=== PATIENT | female | born 1985 | race Caucasian/White ===

== ENCOUNTER 2018-02-26 23:59 | Emergency (ER) | payer OTHER ==
[2018-02-27] MEDS ORDERED: SODIUM CHLORIDE 0.9% 1,000 ML IV ONE ×2 (00:16→01:44)
[2018-02-27] MEDS ORDERED: LORazepam 2 MG/ML VIAL IVP STA (00:16)
--- NOTE | 2018-02-27 00:17 | ED Physician Documentation ---
History of Present Illness - Stated complaint Stated Complaint: DIZZY/LIGHTHEADED/FAST HEART RATE - Chief complaint Chief Complaint: Cardiac - History obtained from History obtained from: Patient, Family - History of Present Illness Timing: Today Pain level max: 0 Pain level now: 0 Improved by: lying down Worsened by: standing up - Additonal information Additional information: Patient is a 32-year-old female who presents to the emergency department after getting in the shower today and during the shower began to feel lightheaded and dizzy. Also felt like her heart was racing. Feels similar to her prior panic attacks. She is also been taking phentermine for weight loss and did not eat or drink very much today. 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 She states she currently feels very thirsty. Did drink a bottle of water before arrival today. Denies any chest pain. Denies any shortness of breath. Has never passed out before. Did not lose consciousness tonight. Denies any possibility of . LMP was last week Review of Systems Ten Systems: 10 systems reviewed and negative Constitutional: denies: Fever, Chills Ears: denies: Ear pain Nose: denies: Rhinorrhea / runny nose, Congestion Throat: denies: Sore throat Cardiac: reports: Palpitations. denies: Chest pain / pressure Respiratory: denies: Dyspnea, Cough, Hemoptysis, Wheezing GI: denies: Abdominal Pain, Nausea, Vomiting, Diarrhea : denies: Dysuria, Frequency, Hesitancy, Now EGA Skin: denies: Rash Musculoskeletal: denies: Neck pain, Back pain Neurologic: denies: Focal weakness, Numbness, Confused, Altered mental status, Headache PD PAST MEDICAL HISTORY - Past Medical History Past Medical History: Yes : Kidney stones Psych: Anxiety (states has been stressed lately. denies SI/HI. 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 - Present Medications Home Medications: Ambulatory Orders Medication Instructions Recorded Confirmed Phentermine HCl 1.5 cap PO DAILY 02/27/18 02/27/18 - Allergies Allergies/Adverse Reactions: Allergies Allergy/AdvReac Type Severity Reaction Status Date / Time No Known Drug Allergies Allergy Verified 01/07/16 01:55 - Social History Does the pt smoke?: No Smoking Status: Never smoker Does the pt drink ETOH?: No Does the pt have substance abuse?: No - Immunizations Immunizations are current?: Yes - POLST Patient has POLST: No PD ED PE NORMAL - Vitals Vital signs reviewed: Yes - General General: Alert and oriented X 3, No acute distress - HEENT HEENT: PERRL, Ears normal, Pharynx benign, Other (dry lips and tongue) - Neck Neck: Supple, no meningeal sign, No JVD, No bruit - Cardiac Cardiac: RRR, Strong equal pulses - Respiratory Respiratory: No respiratory distress, Clear bilaterally - Abdomen Abdomen: Soft, Non tender, Non distended - Back Back: No CVA TTP, No spinal TTP - Derm Derm: Warm and dry - Extremities Extremities: No edema - Neuro Neuro: Alert and oriented X 3, supervisory lifeguard 2-12 intact, No motor deficit, No sensory deficit, Normal speech - Psych Psych: Normal mood, Normal affect Results - Vitals Vitals: Vital Signs - 24 hr 02/27/18 02/27/18 02/27/18 00:06 00:07 00:58 Temperature 36.7 C Heart Rate 95 78 Respiratory 17 11 L Rate Blood Pressure 102/84 H 97/68 Blood Pressure 108/75 [Left] O2 Saturation 100 100 02/27/18 02/27/18 02/27/18 01:31 02:23 02:46 Temperature 36.5 C Heart Rate 81 74 64 Respiratory 17 20 16 Rate Blood Pressure 98/64 97/65 98/65 Blood Pressure [Left] O2 Saturation 100 100 100 Oxygen O2 Source Room air - EKG (time done) 0009 Rate: Rate (enter#) (88) Rhythm: NSR [place]: Normal Intervals: Normal MT QRS: Normal Ischemia: Normal ST segments - Labs Labs: Laboratory Tests 02/27/18 02/27/18 02/27/18 00:20 00:20 00:48 WBC 7.0 RBC 3.98 L Hgb 11.9 L Hct 34.8 L MCV 87.2 MCH 29.8 MCHC 34.2 RDW 12.9 Plt Count 244 MPV 8.1 Neut # (Auto) 4.5 Lymph # (Auto) 2.1 [place] # (Auto) 0.3 Eos # (Auto) 0.0 Baso # (Auto) 0.0 Absolute Nucleated RBC 0.00 Nucleated RBC % 0.0 Sodium 132 L Potassium 3.8 Chloride 99 L Carbon Dioxide 23 Anion Gap 10.0 BUN 20 Creatinine 1.0 Estimated GFR (MDRD) 64 L Glucose 146 H Calcium 9.4 Total Bilirubin 1.1 H AST 25 ALT 18 Alkaline Phosphatase 56 Total Protein 7.8 Albumin 4.5 Globulin 3.3 Albumin/Globulin Ratio 1.4 Lipase 25 Urine Color YELLOW Urine Clarity CLEAR Urine pH 7.0 Ur Specific [place] <=1.005 Urine Protein NEGATIVE Urine Glucose (UA) NEGATIVE Urine Ketones 15 H Urine Occult Blood NEGATIVE Urine Nitrite NEGATIVE Urine Bilirubin NEGATIVE Urine Urobilinogen 0.2 (NORMAL) Ur Leukocyte Esterase NEGATIVE Ur Microscopic Review NOT INDICATED Urine Culture Comments NOT INDICATED Urine HCG, Qual NEGATIVE PD MEDICAL DECISION MAKING - ED course Complexity details: reviewed results, re-evaluated patient, considered differential, d/w patient, d/w family ED course: Patient is a 32-year-old female who presents to the emergency department with what appears to be dehydration causing vasovagal near syncope while in a hot shower tonight. This appears to have triggered her anxiety as well. Symptoms resolved with Ativan and IV fluids. Tolerating p.o. without difficulty. No acute findings on EKG, telemetry or laboratory testing. No evidence of pulmonary embolism. We will have her follow-up with her doctor for further care. Encouraged her to increase her p.o. intake. Also discussed that phentermine may not be a good option for her given her history of anxiety. Patient counseled regarding signs and symptoms for which I believe and urgent re -evaluation would be necessary. Patient with good understanding of and agreement to plan and is comfortable going home at this time This document was made in part using voice recognition software. While efforts are made to proofread this document, sound alike and grammatical errors may occur. - Sepsis Event Vital Signs: Vital Signs - 24 hr 02/27/18 02/27/18 02/27/18 00:06 00:07 00:58 Temperature 36.7 C Heart Rate 95 78 Respiratory 17 11 L Rate Blood Pressure 102/84 H 97/68 Blood Pressure 108/75 [Left] O2 Saturation 100 100 02/27/18 02/27/18 02/27/18 01:31 02:23 02:46 Temperature 36.5 C Heart Rate 81 74 64 Respiratory 17 20 16 Rate Blood Pressure 98/64 97/65 98/65 Blood Pressure [Left] O2 Saturation 100 100 100 Oxygen O2 Source Room air Departure - Departure Disposition: 01 Home, Self Care Clinical Impression: Dehydration, Near syncope, Hyponatremia Condition: Good Instructions: ED Dehydration, ED Near Syncope Vasovagal Follow-Up: BHUMI GARCIA [Primary Care Provider] - Within 1 week Comments: Return if you worsen. Make sure to discuss your life stressors and anxiety with your doctor. You would likely benefit from a counselor/therapist as well. Discharge Date/Time: 02/27/18 02:53
[2018-02-27 00:48] LABS: BASOPHILS % (AUTO) 0.5 %; EOSINOPHILS % (AUTO) 0.1 %; HGB - HEMOGLOBIN 11.9 g/dL (12.0-16.0); LYMPHOCYTES # (AUTO) 2.1 10^3/uL (1.5-3.5); LYMPHOCYTES % (AUTO) 30.5 %; MEAN CORPUSCULAR HEMOGLOBIN 29.8 pg (27.0-31.0); MEAN CORPUSCULAR HGB CONC 34.2 g/dL (32.0-36.0); MEAN CORPUSCULAR VOLUME 87.2 fL (81.0-99.0); MEAN PLATELET VOLUME 8.1 fL (7.9-10.8); MONOCYTES # (AUTO) 0.3 10^3/uL (0.0-1.0); MONOCYTES % (AUTO) 4.7 %; NEUTROPHILS # (AUTO) 4.5 10^3/uL (1.5-6.6); NEUTROPHILS % (AUTO) 64.2 %; PLT - PLATELET COUNT 244 10^3/uL (130-450); RED BLOOD COUNT 3.98 10^6/uL (4.20-5.40); RED CELL DISTRIBUTION WIDTH 12.9 % (12.0-15.0)
[2018-02-27 00:53] LABS: BILIRUBIN,URINE NEGATIVE (NEGATIVE); GLUCOSE, URINE (UA) NEGATIVE (NEGATIVE); KETONES,URINE (UA) 15 mg/dL (NEGATIVE); LEUKOCYTE ESTERASE, URINE NEGATIVE (NEGATIVE); NITRITE,URINE NEGATIVE (NEGATIVE); OCCULT BLOOD,URINE NEGATIVE (NEGATIVE); PROTEIN,URINE NEGATIVE (NEGATIVE); UROBILINOGEN,URINE 0.2 (NORMAL) E.U./dL (NORMAL)
[2018-02-27 00:56] LABS: CLARITY,URINE CLEAR (CLEAR); HCG UR QUAL NEGATIVE
[2018-02-27 01:00] LABS: ALBUMIN 4.5 g/dL (3.2-5.5); ALBUMIN/GLOBULIN RATIO 1.4 (1.0-2.2); BILIRUBIN,TOTAL 1.1 mg/dL (0.2-1.0); CALCIUM 9.4 mg/dL (8.5-10.3); TOTAL PROTEIN 7.8 g/dL (6.7-8.2)
[2018-02-27 02:46] VITALS: BP 98/65
== END 2018-02-27 02:53 | disposition home or self-care (01) ==
LOC: ED 23:59
DX: R55 Syncope and collapse (principal); E87.1 Hypo-osmolality and hyponatremia; E86.0 Dehydration; F41.9 Anxiety disorder, unspecified
CPT/HCPCS: 36415; 80053; 81003; 81025; 83690; 85025; 93005; 96361; 96374; 99283; 99284; J2060; 81001; 87086

== ENCOUNTER 2018-03-24 08:29 | Emergency (ER) | payer OTHER ==
--- NOTE | 2018-03-24 08:39 | ED Physician Documentation ---
PD HPI FEMALE - Stated complaint Stated Complaint: PELVIC PX - History obtained from History obtained from: Patient - History of Present Illness Timing - onset: How many hours ago (2), Today Timing - duration: Hours (2) Timing - details: Abrupt onset, Still present Associated symptoms: Abdominal pain (right lower pelvic). No: Fever, Back pain , Vaginal bleeding, Vaginal discharge, Genital sore/lesion, Dysuria OB-GUARDIAN AD LITEM History: G (4), P (2), Miscarriage(s) (1 (tubal )), Prior vag delivery, Prior ectopic Similar symptoms before: Diagnosis (ruptured ectopic) Recently seen: Clinic (went to PCP last week after home test, for confirmation test. No other testing done.) Review of Systems Constitutional: denies: Fever Nose: denies: Rhinorrhea / runny nose, Congestion Throat: denies: Sore throat Respiratory: denies: Cough GI: reports: Abdominal Pain, Nausea. denies: Vomiting, Diarrhea : denies: Dysuria, Frequency Neurologic: denies: Generalized weakness, Near syncope PD PAST MEDICAL HISTORY - Past Medical History Cardiovascular: None Respiratory: None Neuro: None Endocrine/Autoimmune: None GUARDIAN AD LITEM: Ectopic : Kidney stones Psych: Anxiety (states has been stressed lately. denies SI/HI. 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 - Present Medications Home Medications: Ambulatory Orders Medication Instructions Recorded Confirmed Ibuprofen [Motrin] 600 mg PO TID #30 tab 03/24/18 Ondansetron Odt [Zofran] 4 mg TL Q6H PRN #15 tablet 03/24/18 - Allergies Allergies/Adverse Reactions: Allergies Allergy/AdvReac Type Severity Reaction Status Date / Time No Known Drug Allergies Allergy Verified 03/24/18 08:40 - Social History Does the pt smoke?: No Smoking Status: Never smoker Does the pt drink ETOH?: No Does the pt have substance abuse?: No - Immunizations Immunizations are current?: Yes - POLST Patient has POLST: No PD ED PE NORMAL - Vitals Vital signs reviewed: Yes - General General: Alert and oriented X 3, No acute distress, Well developed/nourished - Neck Neck: Supple, no meningeal sign, No adenopathy - Cardiac Cardiac: RRR, No murmur - Respiratory Respiratory: Clear bilaterally - Abdomen Abdomen: Normal bowel sounds, Soft, Non distended, No organomegaly, Other ( tender with guarding RLQ. ) - Female Female : Deferred - Rectal Rectal: Deferred - Back Back: No CVA TTP - Derm Derm: Normal color, Warm and dry, No rash - Extremities Extremities: Normal ROM s pain - Neuro Neuro: Alert and oriented X 3, No motor deficit, Normal speech Results - Vitals Vitals: Vital Signs - 24 hr 03/24/18 03/24/18 03/24/18 08:37 08:44 10:43 Temperature 36.7 C Heart Rate 92 67 71 Respiratory 18 16 15 Rate Blood Pressure 123/95 H 123/95 H 103/67 O2 Saturation 100 100 100 03/24/18 12:39 Temperature Heart Rate 58 L Respiratory Rate Blood Pressure 112/69 O2 Saturation 100 Oxygen O2 Source Room air - Labs Labs: Laboratory Tests 03/24/18 03/24/18 03/24/18 08:58 08:58 08:58 WBC 5.2 RBC 4.30 Hgb 12.8 Hct 37.7 MCV 87.8 MCH 29.8 MCHC 34.0 RDW 13.6 Plt Count 246 MPV 7.3 L Neut # (Auto) 2.8 Lymph # (Auto) 2.0 [place] # (Auto) 0.3 Eos # (Auto) 0.1 Baso # (Auto) 0.1 Absolute Nucleated RBC 0.00 Nucleated RBC % 0.0 Sodium 136 Potassium 4.3 Chloride 104 Carbon Dioxide 25 Anion Gap 7.0 BUN 11 Creatinine 0.7 Estimated GFR (MDRD) 96 Glucose 99 Calcium 9.2 HCG, Quant 919.93 Urine Color Urine Clarity Urine pH Ur Specific [place] Urine Protein Urine Glucose (UA) Urine Ketones Urine Occult Blood Urine Nitrite Urine Bilirubin Urine Urobilinogen Ur Leukocyte Esterase Ur Microscopic Review Urine Culture Comments Blood Type 03/24/18 03/24/18 10:30 10:46 WBC RBC Hgb Hct MCV MCH MCHC RDW Plt Count MPV Neut # (Auto) Lymph # (Auto) [place] # (Auto) Eos # (Auto) Baso # (Auto) Absolute Nucleated RBC Nucleated RBC % Sodium Potassium Chloride Carbon Dioxide Anion Gap BUN Creatinine Estimated GFR (MDRD) Glucose Calcium HCG, Quant Urine Color YELLOW Urine Clarity CLEAR Urine pH 7.0 Ur Specific [place] <=1.005 Urine Protein NEGATIVE Urine Glucose (UA) NEGATIVE Urine Ketones NEGATIVE Urine Occult Blood NEGATIVE Urine Nitrite NEGATIVE Urine Bilirubin NEGATIVE Urine Urobilinogen 0.2 (NORMAL) Ur Leukocyte Esterase NEGATIVE Ur Microscopic Review NOT INDICATED Urine Culture Comments NOT INDICATED Blood Type O POSITIVE - Rads (name of study) pelvic OB U/S Radiology: Prelim report reviewed (intrauterine sac c/w 5.6 weeks (early for dates) Normal ovaries. No free fluid. ) PD MEDICAL DECISION MAKING - ED course Complexity details: reviewed results, re-evaluated patient, considered differential (high concern for ectopic . Other possibilities would be ruptured cyst, kidney stone, appy, UTI, pelvic infection. ), d/w patient - Sepsis Event Vital Signs: Vital Signs - 24 hr 03/24/18 03/24/18 03/24/18 08:37 08:44 10:43 Temperature 36.7 C Heart Rate 92 67 71 Respiratory 18 16 15 Rate Blood Pressure 123/95 H 123/95 H 103/67 O2 Saturation 100 100 100 03/24/18 12:39 Temperature Heart Rate 58 L Respiratory Rate Blood Pressure 112/69 O2 Saturation 100 Oxygen O2 Source Room air Departure - Departure Disposition: 01 Home, Self Care Clinical Impression: Early stage of , Right lower quadrant abdominal pain Condition: Stable Record reviewed to determine appropriate education?: Yes Instructions: ED Abdominal Pain Unkn Cause Follow-Up: BHUMI GARCIA [Primary Care Provider] - Prescriptions: Ibuprofen [Motrin] 600 mg PO TID #30 tab Ondansetron Odt [Zofran] 4 mg TL Q6H PRN #15 tablet PRN Reason: Nausea / Vomiting Comments: Your ultrasound showed what appeared to be in early in the uterus at 5-6 weeks size. Your quantitative hCG is in the 900s. You will want to have your blood test rechecked in 2-3 days to see if it is going up appropriately. The ultrasound did not show an obvious cause for the pain you were having. Consider the possibility of a small kidney stone passing. The onset and character of the pain does not suggest appendicitis but watch to see how the pain does over the next day and return if worsening pain, repetitive vomiting, any fever, bloody stool or diarrhea or any other concerns. Discharge Date/Time: 03/24/18 12:44
[2018-03-24] MEDS ORDERED: SODIUM CHLORIDE 0.9% 1,000 ML IV ONE (08:52)
[2018-03-24] MEDS ORDERED: ONDANSETRON 4 MG/2 ML VIAL IVP STA (09:08)
[2018-03-24] MEDS ORDERED: MORPHINE 10 MG/ML VIAL IVP STA (09:08)
[2018-03-24 09:14] LABS: BASOPHILS # (AUTO) 0.1 10^3/uL (0.0-0.1); BASOPHILS % (AUTO) 1.1 %; EOSINOPHILS # (AUTO) 0.1 10^3/uL (0.0-0.7); EOSINOPHILS % (AUTO) 1.4 %; HGB - HEMOGLOBIN 12.8 g/dL (12.0-16.0); LYMPHOCYTES % (AUTO) 38.6 %; MEAN CORPUSCULAR HEMOGLOBIN 29.8 pg (27.0-31.0); MEAN CORPUSCULAR VOLUME 87.8 fL (81.0-99.0); MEAN PLATELET VOLUME 7.3 fL (7.9-10.8); MONOCYTES # (AUTO) 0.3 10^3/uL (0.0-1.0); MONOCYTES % (AUTO) 5.6 %; NEUTROPHILS # (AUTO) 2.8 10^3/uL (1.5-6.6); NEUTROPHILS % (AUTO) 53.3 %; PLT - PLATELET COUNT 246 10^3/uL (130-450); RED CELL DISTRIBUTION WIDTH 13.6 % (12.0-15.0); WHITE BLOOD COUNT 5.2 x10^3/uL (4.8-10.8)
[2018-03-24 09:23] LABS: CALCIUM 9.2 mg/dL (8.5-10.3); CREATININE 0.7 mg/dL (0.4-1.0)
[2018-03-24] MEDS ORDERED: KETOROLAC 60 MG/2 ML VIAL IVP STA (10:38)
--- NOTE | 2018-03-24 10:57 | Ultrasound Report ---
Procedure Date: 03/24/2018 Accession Number: [id number] / [id number] Procedure: US - OB First Trimester CPT Code: FULL RESULT: EXAM: FIRST TRIMESTER OBSTETRIC ULTRASOUND (Less than 11 weeks) EXAM DATE: 03/24/2018 10:30 AM. CLINICAL HISTORY: Early ; lower right abd pain. LMP: 01/18/2018. COMPARISONS: None. TECHNIQUE: Transabdominal and transvaginal ultrasound examination with static image documentation. CLINICAL DATES: EGA 9 weeks 2 days with MARCIANO 10/25/2018 based on LMP. ASSESSMENT: Gestational Sac: Intrauterine fluid collection, which could represent a gestational sac. Mean gestational sac diameter: 10.1 mm = 5 weeks 6 days. Embryo: Not visualized. Cardiac activity: Not visualized. Yolk sac: Not visualized. Amniotic fluid: Not accurately assessed at this gestational age. Early placenta: Not visible at this gestational age. Other: No perigestational fluid collection demonstrated. MATERNAL STRUCTURES: Uterus: Anteverted. Mildly heterogeneous without definite focal abnormality. Cervix: Closed. Right Ovary/Adnexa: Unremarkable. The ovary measures 4.1 x 2.0 x 2.7 cm, volume 11.5 cc. Left Ovary/Adnexa: Unremarkable. The ovary measures 2.3 x 1.4 x 1.9 cm, volume cc. Free Fluid: None. Other: None. IMPRESSION: Intrauterine fluid collection, which could represent a gestational sac. If this is a gestational sac, size would correspond to an estimated gestational age of 5 weeks and 6 days and MARCIANO 11/18/2017 which is discordant with the clinical EGA of 9 weeks 2 days and MARCIANO 10/25/2018. Nonvisualization of embryo and yolk sac. Absence of an embryo at or greater than 6 weeks after last menstrual period is suspicious for, but not diagnostic of, failure. The discordance with the clinical EGA is also concerning. Recommend close clinical follow-up and correlation with serial beta hCG and, if appropriate, follow-up ultrasound in 7-10 days. RENA The above findings and recommendation were discussed with Dyllan Mario by Dr. Silverio Tadoe at 10:54 hrs on 03/24/18.
[2018-03-24 10:58] LABS: BILIRUBIN,URINE NEGATIVE (NEGATIVE); GLUCOSE, URINE (UA) NEGATIVE (NEGATIVE); KETONES,URINE (UA) NEGATIVE (NEGATIVE); LEUKOCYTE ESTERASE, URINE NEGATIVE (NEGATIVE); NITRITE,URINE NEGATIVE (NEGATIVE); OCCULT BLOOD,URINE NEGATIVE (NEGATIVE); PROTEIN,URINE NEGATIVE (NEGATIVE); UROBILINOGEN,URINE 0.2 (NORMAL) E.U./dL (NORMAL)
[2018-03-24 11:01] LABS: CLARITY,URINE CLEAR (CLEAR)
[2018-03-24 12:40] VITALS: BP 112/69
== END 2018-03-24 12:44 | disposition home or self-care (01) ==
LOC: ED 08:29
DX: O99.89 Other specified diseases and conditions complicating pregnancy, childbirth and the puerperium (principal); R10.31 Right lower quadrant pain; Z87.59 Personal history of other complications of pregnancy, childbirth and the puerperium
CPT/HCPCS: 36415; 76801; 76817; 80048; 81001; 81003; 84702; 85025; 86900; 86901; 87086; 96361; 96374; 96375; 99283; 99284

== ENCOUNTER 2018-03-25 12:39 | Emergency (ER) | payer OTHER ==
[2018-03-25 13:57] LABS: EOSINOPHILS # (AUTO) 0.1 10^3/uL (0.0-0.7); EOSINOPHILS % (AUTO) 2.4 %; HGB - HEMOGLOBIN 11.7 g/dL (12.0-16.0); LYMPHOCYTES # (AUTO) 1.6 10^3/uL (1.5-3.5); LYMPHOCYTES % (AUTO) 32.7 %; MEAN CORPUSCULAR HEMOGLOBIN 30.2 pg (27.0-31.0); MEAN CORPUSCULAR HGB CONC 34.4 g/dL (32.0-36.0); MEAN CORPUSCULAR VOLUME 87.8 fL (81.0-99.0); MEAN PLATELET VOLUME 6.9 fL (7.9-10.8); MONOCYTES # (AUTO) 0.3 10^3/uL (0.0-1.0); MONOCYTES % (AUTO) 5.9 %; NEUTROPHILS # (AUTO) 2.8 10^3/uL (1.5-6.6); PLT - PLATELET COUNT 226 10^3/uL (130-450); RED BLOOD COUNT 3.87 10^6/uL (4.20-5.40); RED CELL DISTRIBUTION WIDTH 13.7 % (12.0-15.0); WHITE BLOOD COUNT 4.9 x10^3/uL (4.8-10.8)
[2018-03-25 14:09] LABS: ALBUMIN/GLOBULIN RATIO 1.3 (1.0-2.2); BILIRUBIN,TOTAL 0.7 mg/dL (0.2-1.0); CALCIUM 8.9 mg/dL (8.5-10.3); CREATININE 0.6 mg/dL (0.4-1.0); TOTAL PROTEIN 7.2 g/dL (6.7-8.2)
--- NOTE | 2018-03-25 15:47 | ED Physician Documentation ---
PD HPI FEMALE - Stated complaint Stated Complaint: FEMALE / BLEEDING/9 WEEK - Chief complaint Chief Complaint: Abd Pain - History obtained from History obtained from: Patient - History of Present Illness Timing - onset: Yesterday Timing - duration: Days (1) Timing - details: Abrupt onset Pain level max: 5 Pain level max: 4 Associated symptoms: Pelvic pain, Vaginal bleeding OB-OBSTETRICS GYN History: G (4), P (2), Prior ectopic (x1) Recently seen: Emergency Dept (yesterday for same.) Review of Systems Ten Systems: 10 systems reviewed and negative Constitutional: denies: Fever, Chills Nose: denies: Rhinorrhea / runny nose, Congestion Throat: denies: Sore throat Cardiac: denies: Chest pain / pressure GI: denies: Nausea, Vomiting, Diarrhea Skin: denies: Rash Musculoskeletal: denies: Neck pain, Back pain Neurologic: denies: Headache PD PAST MEDICAL HISTORY - Past Medical History Cardiovascular: None Respiratory: None Neuro: None Endocrine/Autoimmune: None OBSTETRICS GYN: Ectopic : Kidney stones Psych: Anxiety (states has been stressed lately. denies SI/HI. 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: section - Present Medications Home Medications: Ambulatory Orders Medication Instructions Recorded Confirmed Ibuprofen [Motrin] 600 mg PO TID #30 tab 03/24/18 03/25/18 Ondansetron Odt [Zofran] 4 mg TL Q6H PRN #15 tablet 03/24/18 03/25/18 - Allergies Allergies/Adverse Reactions: Allergies Allergy/AdvReac Type Severity Reaction Status Date / Time No Known Drug Allergies Allergy Verified 03/25/18 13:03 - Social History Does the pt smoke?: No Smoking Status: Never smoker Does the pt drink ETOH?: No Does the pt have substance abuse?: No - Immunizations Immunizations are current?: Yes - POLST Patient has POLST: No PD ED PE NORMAL - Vitals Vital signs reviewed: Yes - General General: Alert and oriented X 3, No acute distress - HEENT HEENT: Moist mucous membranes - Neck Neck: Supple, no meningeal sign - Cardiac Cardiac: RRR - Respiratory Respiratory: No respiratory distress, Clear bilaterally - Abdomen Abdomen: Soft, Non tender, Non distended - Female Female : Pt declined - Back Back: No CVA TTP - Derm Derm: Warm and dry - Neuro Neuro: Alert and oriented X 3 - Psych Psych: Normal mood, Normal affect Results - Vitals Vitals: Vital Signs - 24 hr 03/25/18 03/25/18 13:00 16:04 Temperature 37.1 C Heart Rate 78 69 Respiratory 18 16 Rate Blood Pressure 119/70 108/70 O2 Saturation 100 100 Oxygen O2 Source Room air - Labs Labs: Laboratory Tests 03/25/18 03/25/18 03/25/18 13:50 13:50 13:50 WBC 4.9 RBC 3.87 L Hgb 11.7 L Hct 34.0 L MCV 87.8 MCH 30.2 MCHC 34.4 RDW 13.7 Plt Count 226 MPV 6.9 L Neut # (Auto) 2.8 Lymph # (Auto) 1.6 [place] # (Auto) 0.3 Eos # (Auto) 0.1 Baso # (Auto) 0.0 Absolute Nucleated RBC 0.00 Nucleated RBC % 0.0 Sodium 136 Potassium 3.8 Chloride 105 Carbon Dioxide 25 Anion Gap 6.0 BUN 11 Creatinine 0.6 Estimated GFR (MDRD) 115 Glucose 69 L Calcium 8.9 Total Bilirubin 0.7 AST 22 ALT 18 Alkaline Phosphatase 55 Total Protein 7.2 Albumin 4.0 Globulin 3.2 Albumin/Globulin Ratio 1.3 Lipase 32 HCG, Quant 590.66 PD MEDICAL DECISION MAKING - ED course Complexity details: reviewed old records, reviewed results, considered differential, d/w patient ED course: Patient is a 32-year-old female who appears to be miscarrying today. Her hCG is decreased from 900 yesterday to 500 today. Has vaginal bleeding similar to her normal menses. Hemoglobin is stable. Vital signs are stable. Had an ultrasound yesterday that showed a possible gestational sac but states discordant with her LMP. Patient informed that she is miscarrying and will follow up with her doctor. Patient counseled regarding signs and symptoms for which I believe and urgent re-evaluation would be necessary. Patient with good understanding of and agreement to plan and is comfortable going home at this time This document was made in part using voice recognition software. While efforts are made to proofread this document, sound alike and grammatical errors may occur. - Sepsis Event Vital Signs: Vital Signs - 24 hr 03/25/18 03/25/18 13:00 16:04 Temperature 37.1 C Heart Rate 78 69 Respiratory 18 16 Rate Blood Pressure 119/70 108/70 O2 Saturation 100 100 Oxygen O2 Source Room air Departure - Departure Disposition: 01 Home, Self Care Clinical Impression: Miscarriage Condition: Good Instructions: ED Miscarriage Completed Follow-Up: BHUMI GARCIA [Primary Care Provider] - As Needed Comments: It appears that you are having a miscarriage. Your hormone levels have decreased significantly since yesterday. Return for heavy bleeding, such as soaking a pad an hour, feeling lightheaded or dizzy or any other worsening symptoms. Return if you worsen Discharge Date/Time: 03/25/18 16:04
[2018-03-25 16:06] VITALS: BP 108/70
== END 2018-03-25 16:04 | disposition home or self-care (01) ==
LOC: ED 12:39
DX: O03.9 Complete or unspecified spontaneous abortion without complication (principal); Z87.59 Personal history of other complications of pregnancy, childbirth and the puerperium
CPT/HCPCS: 36415; 80053; 83690; 84702; 85025; 99283

== ENCOUNTER 2019-09-27 13:42 | Emergency (ER) | payer OTHER ==
[2019-09-27] MEDS ORDERED: SODIUM CHLORIDE 0.9% 1,000 ML IV ONE ×2 (14:04→15:07)
[2019-09-27 14:11] LABS: BASOPHILS # (AUTO) 0.1 10^3/uL (0.0-0.1); BASOPHILS % (AUTO) 0.8 %; EOSINOPHILS # (AUTO) 0.1 10^3/uL (0.0-0.7); EOSINOPHILS % (AUTO) 1.1 %; HGB - HEMOGLOBIN 12.7 g/dL (12.0-16.0); LYMPHOCYTES # (AUTO) 2.4 10^3/uL (1.5-3.5); LYMPHOCYTES % (AUTO) 34.4 %; MEAN CORPUSCULAR HEMOGLOBIN 28.7 pg (27.0-31.0); MEAN CORPUSCULAR HGB CONC 33.3 g/dL (32.0-36.0); MEAN CORPUSCULAR VOLUME 86.2 fL (81.0-99.0); MEAN PLATELET VOLUME 9.3 fL (7.9-10.8); MONOCYTES # (AUTO) 0.5 10^3/uL (0.0-1.0); MONOCYTES % (AUTO) 6.9 %; NEUTROPHILS % (AUTO) 56.4 %; PLT - PLATELET COUNT 273 10^3/uL (130-450); RED BLOOD COUNT 4.42 10^6/uL (4.20-5.40); RED CELL DISTRIBUTION WIDTH 12.6 % (12.0-15.0); WHITE BLOOD COUNT 7.1 x10^3/uL (4.8-10.8)
[2019-09-27 14:26] LABS: ALBUMIN 4.4 g/dL (3.2-5.5); ALBUMIN/GLOBULIN RATIO 1.2 (1.0-2.2); BILIRUBIN,TOTAL 0.7 mg/dL (0.2-1.0); CALCIUM 9.4 mg/dL (8.5-10.3); CREATININE 0.5 mg/dL (0.4-1.0); TOTAL PROTEIN 8.2 g/dL (6.7-8.2)
--- NOTE | 2019-09-27 14:53 | ED Physician Documentation ---
PD HPI FEMALE - Stated complaint Stated Complaint: FEMALE - Chief complaint Chief Complaint: Abd Pain - History obtained from History obtained from: Patient - History of Present Illness Timing - onset: How many days ago (3) Timing - duration: Days (3) Timing - details: Gradual onset, Still present (worse significantly today), Waxing and waning Associated symptoms: Abdominal pain, Back pain (left flank and even some to left shoulder). No: Fever, Vaginal bleeding, Vaginal discharge, Dysuria Contributing factors: (recent Dx with estimated 6 wks EGA). 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 It feels like ectopic and internal bleeding she had had in the past.) Similar symptoms before: Diagnosis (ectopic ) Recently seen: Not recently seen Review of Systems Constitutional: denies: Fever, Chills Nose: denies: Rhinorrhea / runny nose, Congestion Throat: denies: Sore throat Respiratory: denies: Cough GI: reports: Abdominal Pain, Nausea. denies: Vomiting, Constipation, Diarrhea : reports: Missed period, Now EGA (6). 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 Psych: Anxiety Musculoskeletal: None Derm: None - Past Surgical History Past Surgical History: Yes /TRACK REPAIR WORKER: section - Present Medications Home Medications: Ambulatory Orders Medication Instructions Recorded Confirmed Naproxen 375 mg PO BID #15 tablet 09/27/19 Ondansetron Odt [Zofran] 4 mg TL Q6H PRN #10 tablet 09/27/19 Pnv No.95/Ferrous Fum/Folic AC 1 each PO DAILY #30 tablet 09/27/19 [ Vitamin Tablet] Pyridoxine HCl (Vitamin B6) 25 mg PO BID #60 tablet 09/27/19 [Vitamin B-6] - Allergies Allergies/Adverse Reactions: Allergies Allergy/AdvReac Type Severity Reaction Status Date / Time No Known Drug Allergies Allergy Verified 09/27/19 13:52 - Social History Does the pt smoke?: No Smoking Status: Never smoker Does the pt drink ETOH?: No Does the pt have substance abuse?: No - Immunizations Immunizations are current?: Yes - POLST Patient has POLST: No PD ED PE NORMAL - Vitals Vital signs reviewed: Yes - General General: Alert and oriented X 3, Well developed/nourished, Other (appears in pain) - HEENT HEENT: Pharynx benign - Neck Neck: Supple, no meningeal sign, No adenopathy - Cardiac Cardiac: RRR, No murmur - Respiratory Respiratory: Clear bilaterally - Abdomen Abdomen: Normal bowel sounds, Soft, Non distended, No organomegaly, Other (tender left lower to mid abdomen without percussion nor rebound. No guarding. Some CVA tender left. Right side not tender. ) Results - Vitals Vitals: Vital Signs - 24 hr 09/27/19 09/27/19 09/27/19 13:50 13:52 14:22 Temperature 36.8 C 36.8 C Heart Rate 82 82 70 Respiratory 18 18 14 Rate Blood Pressure 129/92 H 129/92 H 121/84 H O2 Saturation 100 100 100 09/27/19 09/27/19 09/27/19 14:30 14:46 15:00 Temperature Heart Rate 60 60 57 L Respiratory 16 11 L 16 Rate Blood Pressure 137/73 H 137/68 H 123/68 O2 Saturation 98 93 100 09/27/19 09/27/19 09/27/19 15:30 17:00 17:30 Temperature Heart Rate 54 L 60 58 L Respiratory 14 14 14 Rate Blood Pressure 95/53 L 110/62 106/66 O2 Saturation 100 100 100 09/27/19 09/27/19 18:00 19:35 Temperature Heart Rate 60 57 L Respiratory 14 18 Rate Blood Pressure 108/65 115/72 O2 Saturation 100 99 Oxygen O2 Source Room air - Labs Labs: Laboratory Tests 09/27/19 09/27/19 09/27/19 14:05 14:05 14:05 WBC 7.1 RBC 4.42 Hgb 12.7 Hct 38.1 MCV 86.2 MCH 28.7 MCHC 33.3 RDW 12.6 Plt Count 273 MPV 9.3 Neut # (Auto) 4.0 Lymph # (Auto) 2.4 Coffee # (Auto) 0.5 Eos # (Auto) 0.1 Baso # (Auto) 0.1 Absolute Nucleated RBC 0.00 Nucleated RBC % 0.0 Sodium 136 Potassium 3.4 L Chloride 102 Carbon Dioxide 24 Anion Gap 10.0 BUN 11 Creatinine 0.5 Estimated GFR (MDRD) 140 Glucose 84 Calcium 9.4 Total Bilirubin 0.7 AST 19 ALT 14 Alkaline Phosphatase 45 Total Protein 8.2 Albumin 4.4 Globulin 3.8 Albumin/Globulin Ratio 1.2 Lipase 32 HCG, Quant Urine Color Urine Clarity Urine pH Ur Specific [place] Urine Protein Urine Glucose (UA) Urine Ketones Urine Occult Blood Urine Nitrite Urine Bilirubin Urine Urobilinogen Ur Leukocyte Esterase Ur Microscopic Review Urine Culture Comments Blood Type O POSITIVE Antibody Screen NEGATIVE 09/27/19 09/27/19 14:05 18:22 WBC RBC Hgb Hct MCV MCH MCHC RDW Plt Count MPV Neut # (Auto) Lymph # (Auto) Coffee # (Auto) Eos # (Auto) Baso # (Auto) Absolute Nucleated RBC Nucleated RBC % Sodium Potassium Chloride Carbon Dioxide Anion Gap BUN Creatinine Estimated GFR (MDRD) Glucose Calcium Total Bilirubin AST ALT Alkaline Phosphatase Total Protein Albumin Globulin Albumin/Globulin Ratio Lipase HCG, Quant 31174.00 Urine Color LT. YELLOW Urine Clarity CLEAR Urine pH 6.5 Ur Specific [place] 1.010 Urine Protein NEGATIVE Urine Glucose (UA) NEGATIVE Urine Ketones NEGATIVE Urine Occult Blood NEGATIVE Urine Nitrite NEGATIVE Urine Bilirubin NEGATIVE Urine Urobilinogen 0.2 (NORMAL) Ur Leukocyte Esterase NEGATIVE Ur Microscopic Review NOT INDICATED Urine Culture Comments NOT INDICATED Blood Type Antibody Screen - Rads (name of study) OB U/S Radiology: Prelim report reviewed (IUP 6w5d with FHR 102. Small perigestational hemorrhage. right corpus luteum cyst. No free fluid. ), See rad report PD MEDICAL DECISION MAKING - ED course Complexity details: reviewed results, re-evaluated patient (pain improved with meds. U/S showing IUP and no free fluid. UA is normal. No explanation for pain for certain. Consider ureterolithiasis. Would not want to get CT due to regnancy. Can manage pain with NSAIDs in case. ), considered differential (concern for ectopic , ruptured cyst, pyelo, kidney stone, colonic process. ), d/w patient Departure - Departure Disposition: 01 Home, Self Care Clinical Impression: Abdominal pain Qualifiers: Abdominal location: lower abdomen, unspecified Qualified Code(s): R10.30 - Lower abdominal pain, unspecified Qualifiers: Weeks of gestation: less than 8 weeks Qualified Code(s): Z3A.01 - Less than 8 weeks gestation of Condition: Stable Record reviewed to determine appropriate education?: Yes Instructions: ED Abdominal Pain Unkn Cause Follow-Up: BHUMI GARCIA [Primary Care Provider] - Prescriptions: Naproxen 375 mg PO BID #15 tablet Ondansetron Odt [Zofran] 4 mg TL Q6H PRN #10 tablet PRN Reason: Nausea / Vomiting Pnv No.95/Ferrous Fum/Folic AC [ Vitamin Tablet] 1 each PO DAILY #30 tablet Pyridoxine HCl (Vitamin B6) [Vitamin B-6] 25 mg PO BID #60 tablet Comments: Your ultrasound shows a normal intrauterine. No free fluid. There is a small corpus luteum cyst on the right. Urine appears normal without any signs of infection or blood. At this point am not sure the cause of your stomach pain. Is not apparently related to the but no other identified cause at this time. Stay well-hydrated. You can use some Tylenol every 4-6 hours if needed. Consider naproxen anti-inflammatory twice daily for several days to week. Ondansetron if needed for nausea. You could start a vitamin daily pending follow-up appointment with TEST ENGINE EVALUATOR. You could use vitamin B6 twice daily as well to help reduce nausea in . Regular activity is okay except for high impact activities. Recheck if worsening symptoms or significant bleeding fever or other concerns. Discharge Date/Time: 09/27/19 19:20
[2019-09-27] MEDS ORDERED: KETOROLAC 30 MG/ML VIAL IVP STA (15:06)
[2019-09-27] MEDS ORDERED: ONDANSETRON 4 MG/2 ML VIAL IVP STA (15:06)
[2019-09-27] MEDS ORDERED: ACETAMINOPHEN 1,000 MG/100 ML 100 ML IV STA (15:06)
--- NOTE | 2019-09-27 17:48 | Ultrasound Report ---
Reason: left lower abd pain; 6 wks EGA Procedure Date: 09/27/2019 Accession Number: [id number] / [id number] Procedure: US - OB First Trimester CPT Code: Final Report FULL RESULT: EXAM: FIRST TRIMESTER OBSTETRIC ULTRASOUND (Less than 11 weeks) EXAM DATE: 09/27/2019 04:36 PM. CLINICAL HISTORY: Left lower abdomen pain; 6 wks EGA. Bilateral pelvic pain for 3 days, worsening today. LMP: 08/15/2019, EGA 6 weeks 1 day, MARCIANO 05/21/2020. COMPARISONS: OB FIRST TRIMESTER 03/24/2018 9:27 AM. TECHNIQUE: Transabdominal and transvaginal ultrasound examination with static image documentation. ASSESSMENT: Gestational Sac: Single intrauterine. Mean gestational sac diameter: 17.7 mm = 6 weeks 5 days, MARCIANO 05/17/2020. Embryo: CRL (crown-rump length) 5.4 mm = 6 weeks 2 days, MARCIANO 05/20/2020. Cardiac activity: 102 beats per minute. Yolk sac: 3.3 mm. Amniotic fluid: Not accurately assessed at this gestational age. Early placenta: Not visible at this gestational age. Other: Left posterior small perigestational bleed measuring 20 x 8 x 6 mm.. MATERNAL STRUCTURES: Uterus: Anteverted. Unremarkable. Cervix: Closed. Right Ovary/Adnexa: The ovary measures 5.4 x 2.4 x 3.2 cm, volume 22.6 cc. Unremarkable. Corpus luteum seen in the right ovary. Left Ovary/Adnexa: The ovary measures 2.6 x 1.5 x 2 cm, volume 4 cc. Unremarkable. Free Fluid: None. IMPRESSION: 1. Single living intrauterine measuring 6 weeks 2 days based on the embryo crown-rump length, MARCIANO 05/20/2020. This is concordant with dates. 2. Left posterior small perigestational bleed measuring 20 x 8 x 6 mm. RADIA
[2019-09-27 18:26] LABS: BILIRUBIN,URINE NEGATIVE (NEGATIVE); GLUCOSE, URINE (UA) NEGATIVE (NEGATIVE); KETONES,URINE (UA) NEGATIVE (NEGATIVE); LEUKOCYTE ESTERASE, URINE NEGATIVE (NEGATIVE); NITRITE,URINE NEGATIVE (NEGATIVE); OCCULT BLOOD,URINE NEGATIVE (NEGATIVE); PH,URINE 6.5 PH (5.0-7.5); PROTEIN,URINE NEGATIVE (NEGATIVE); UROBILINOGEN,URINE 0.2 (NORMAL) E.U./dL (NORMAL)
[2019-09-27 18:30] LABS: CLARITY,URINE CLEAR (CLEAR)
[2019-09-27] MEDS ORDERED: ACETAMINOPHEN 325 MG TABLET PO STA (18:45)
[2019-09-27 19:35] VITALS: BP 115/72
== END 2019-09-27 19:20 | disposition home or self-care (01) ==
LOC: ED 13:42
DX: O99.89 Other specified diseases and conditions complicating pregnancy, childbirth and the puerperium (principal); R10.30 Lower abdominal pain, unspecified; N83.11 Corpus luteum cyst of right ovary; Z3A.01 Less than 8 weeks gestation of pregnancy
CPT/HCPCS: 36415; 76801; 76817; 80053; 81003; 83690; 84702; 85025; 86850; 86900; 86901; 96361; 96365; 96375; 99284; A9270; J0131; 81001; 87086

== ENCOUNTER 2020-04-27 07:00 | Outpatient (CLI) | payer OTHER | END 2020-04-27 23:59 | disposition home or self-care (01) | LOC: LAB.R 07:00 | PROVIDERS: ATTEND Nurse Practitioner Obstetrics & Gynecology | DX: Z36.85 Encounter for antenatal screening for Streptococcus B (principal) | CPT/HCPCS: 87797 ==

== ENCOUNTER 2020-05-03 09:54 | Outpatient (CLI) | payer OTHER ==
[2020-05-03 10:15] LABS: HGB - HEMOGLOBIN 10.5 g/dL (12.0-16.0); MEAN CORPUSCULAR HEMOGLOBIN 29.5 pg (27.0-31.0); MEAN CORPUSCULAR HGB CONC 31.5 g/dL (32.0-36.0); MEAN CORPUSCULAR VOLUME 93.5 fL (81.0-99.0); MEAN PLATELET VOLUME 9.6 fL (7.9-10.8); RED BLOOD COUNT 3.56 10^6/uL (4.20-5.40); RED CELL DISTRIBUTION WIDTH 13.8 % (12.0-15.0); WHITE BLOOD COUNT 5.9 x10^3/uL (4.8-10.8)
== END 2020-05-03 09:55 | disposition home or self-care (01) ==
LOC: LAB 09:54
PROVIDERS: ATTEND Obstetrics & Gynecology
DX: D64.9 Anemia, unspecified (principal)
CPT/HCPCS: 36415; 85027

== ENCOUNTER 2020-05-11 11:07 | Outpatient (CLI) | payer OTHER ==
[2020-05-11 11:37] LABS: BASOPHILS % (AUTO) 0.4 %; EOSINOPHILS # (AUTO) 0.2 10^3/uL (0.0-0.7); HGB - HEMOGLOBIN 11.3 g/dL (12.0-16.0); LYMPHOCYTES # (AUTO) 1.5 10^3/uL (1.5-3.5); LYMPHOCYTES % (AUTO) 19.3 %; MEAN CORPUSCULAR HEMOGLOBIN 30.7 pg (27.0-31.0); MEAN CORPUSCULAR HGB CONC 33.3 g/dL (32.0-36.0); MEAN CORPUSCULAR VOLUME 92.1 fL (81.0-99.0); MEAN PLATELET VOLUME 9.5 fL (7.9-10.8); MONOCYTES # (AUTO) 0.6 10^3/uL (0.0-1.0); MONOCYTES % (AUTO) 7.5 %; NEUTROPHILS # (AUTO) 5.3 10^3/uL (1.5-6.6); NEUTROPHILS % (AUTO) 70.1 %; PLT - PLATELET COUNT 306 10^3/uL (130-450); RED BLOOD COUNT 3.68 10^6/uL (4.20-5.40); RED CELL DISTRIBUTION WIDTH 13.7 % (12.0-15.0); WHITE BLOOD COUNT 7.6 x10^3/uL (4.8-10.8)
== END 2020-05-11 11:08 | disposition home or self-care (01) ==
LOC: LAB 11:07
PROVIDERS: ATTEND Obstetrics & Gynecology
DX: Z01.812 Encounter for preprocedural laboratory examination (principal); Z20.828 Contact with and (suspected) exposure to other viral communicable diseases; O34.211 Maternal care for low transverse scar from previous cesarean delivery
CPT/HCPCS: 36415; 85025; 86850; 86900; 86901

== ENCOUNTER 2020-05-14 11:54 | Outpatient (CLI) | payer OTHER | END 2020-05-14 11:55 | disposition home or self-care (01) | LOC: LAB 11:54 | PROVIDERS: ATTEND Obstetrics & Gynecology | DX: Z01.818 Encounter for other preprocedural examination (principal); O34.211 Maternal care for low transverse scar from previous cesarean delivery; Z3A.00 Weeks of gestation of pregnancy not specified | CPT/HCPCS: 36415; 85025; 86850; 86900; 86901; 86920 ==

== ENCOUNTER 2020-05-16 05:36 | Inpatient (IN) | payer OTHER ==
[2020-05-16] MEDS ORDERED: LACTATED RINGERS 1,000 ML IV ONE ×2 (05:57→12:39)
[2020-05-16] MEDS ORDERED: OXYTOCIN/SODIUM CHLORIDE 500 ML IV ONE (07:31)
[2020-05-16] MEDS ORDERED: SODIUM CHLORIDE 0.9% MINIBAG 100 ML IV ONE (07:31)
[2020-05-16] MEDS ORDERED: ceFAZolin 1 GM VIAL ONE (07:31)
[2020-05-16] MEDS ORDERED: LIDOCAINE 1%-EPI 1:100000 20 ML MDV ONE (07:38)
--- NOTE | 2020-05-16 07:49 | ANESTHESIA ---
Pre-Anesthesia VS, & Labs - Diagnosis Previous C/S - Procedure Repeat c/s Height: 5 ft 5 in - NPO >8 hours - Is Patient ?: Yes Home Medications and Allergies PNV Allergies/Adverse Reactions: Allergies Allergy/AdvReac Type Severity Reaction Status Date / Time No Known Drug Allergies Allergy Verified 09/27/19 13:52 Anes History & Medical History - Anesthetic History Anesthesia Complications: reports: No previous complications - Medical History Cardiovascular: reports: None Pulmonary: reports: None Gastrointestinal: reports: GERD (during ) Urinary: reports: Kidney stones Neuro: reports: None Musculoskeletal: reports: None Endocrine/Autoimmune: reports: None Blood Disorders: reports: None Skin: reports: None Smoking Status: Never smoker Psychosocial: reports: Depression, Anxiety History of Cancer?: No - Surgical History Gynecologic: section, Other (Breast Augmentation, Ectopic ) Other Past Surgical History: Abdominoplasty - Obstetrical History : 4 Parity: 2 Events: positive: None Complications: positive: None Exam General: Alert, Oriented x3, Cooperative, No acute distress Dental: WNL Mouth Openin Fingerbreadth Neck Mobility: Normal Mallampati classification: II Thyromental Distance: 4-6 cm Plan Anesthesia Type: Spinal Consent for Procedure(s) Verified and Reviewed: Yes Code Status: Attempt Resuscitation ASA classification: 2-Mild systemic disease Is this case an emergency?: No
[2020-05-16] MEDS ORDERED: ACETAMINOPHEN 1,000 MG/100 ML 100 ML IV ONE (07:59)
[2020-05-16] MEDS ORDERED: KETOROLAC 30 MG/ML VIAL IVP ONE (07:59)
[2020-05-16] MEDS ORDERED: PHENYLEPHRINE 10 MG/ML VIAL IV ONE (07:59)
[2020-05-16] MEDS ORDERED: CARBOPROST TROMETHAMINE 250 MCG/ML AMP IM ONE (08:36)
[2020-05-16] MEDS ORDERED: miSOPROStoL 200 MCG TABLET ONE (08:36)
[2020-05-16] MEDS ORDERED: METHYLERGONOVINE 0.2 MG/ML VIAL ONE (08:36)
[2020-05-16] MEDS ORDERED: LIDOCAINE 1%-EPI 1:100000 30 ML MDV SUBQ ONE ×2 (08:37→10:00)
[2020-05-16] MEDS ORDERED: METHYLENE BLUE 0.5% 50 MG/10 ML AMPULE ONE (09:07)
[2020-05-16] MEDS ORDERED: fentaNYL 100 MCG/2 ML VIAL IVP PRN (09:23)
[2020-05-16] MEDS ORDERED: ATROPINE ABBOJECT 1 MG/10 ML SYRINGE IVP PRN (09:23)
[2020-05-16] MEDS ORDERED: NALOXONE 0.4 MG/ML VIAL IVP PRN (09:23)
[2020-05-16] MEDS ORDERED: MORPHINE 2 MG/ML CARPUJECT IVP PRN (09:23)
[2020-05-16] MEDS ORDERED: LACTATED RINGERS 1,000 ML IV SCH (10:00)
[2020-05-16] MEDS ORDERED: oxyCODONE 5 MG TABLET PO PRN (10:31)
[2020-05-16] MEDS ORDERED: OXYTOCIN/SODIUM CHLORIDE 500 ML IV PRN (10:31)
--- NOTE | 2020-05-16 10:35 | OPERATIVE REPORT ---
Operative Report - General Admit Date: 05/16/20 Procedure Date: 05/16/20 Planned Procedure: Repeat low transverse Pre-Op Diagnosis: IUP at 39 ga; hx of prior x2; hx of wound complication Procedure Performed: Repeat low transverse with wound revision Post Op Diagnosis: Same and deliveryof term gestation - Procedure Note Primary Surgeon: Maxi Spencer MD Secondary Surgeon: Shelly Ferguson CNM Anesthesia Provider: Nida Garcia CRNA Anesthesia Technique: Combo spinal/epidural, Spinal Pathology: Placenta for routine discard IV Fluids (mL): 1,300 Estimated Blood Loss (mL): 1,000 Urine Output (mL): 100 Indications: Patient is a 34 yo here for repeat . Endorses FM and contractions. No LOF or VB. Declines sterilization. Findings: Extensive scar tissue. Normal appearing right tube and ovary. Left tube surgically absent. Viable female delivered from vertex position with Apgars of 9/9. Weight pending. For future surgeries: the bladder is adherent to the underlying rectus fascia about 1/3 the length of the distance between the pubic symphysis and the umbilicus. The midline of the rectus could not be divided through the pyramidalis without compromising integrity of the bladder. Complications: None. - Other Other Information/Narrative: Risks benefits and alternatives of the procedure were discussed. Written informed consent was obtained. Patient was taken to the operating room where spinal anesthesia was placed and found to be adequate. She was prepped and draped in the usual sterile fashion in the dorsal supine position with a leftward tilt. Haines catheter was in place. SCDs were in place and activated. Cefazolin 2 g IV was given as a preoperative antibiotic. Preoperative timeout was performed. . An oval incision was made above and below the prior Pfannenstiel incision was made in the skin with a scalpel. The prior incison was grasped and elevated with Allis clamps and the underlying subcutaneous tissue was dissected off the over lying skin/incision tissue with Bovie cautery. The prior scar tissue w as removed from the field. The incision was then carried through the underlying layer of fascia in a combination of sharp and blunt dissection. There was significant scar tissue requiring careful dissection. The fascia was incised in the midline, and the incision was extended laterally with the Muller scissors. The fascial layer was thickly adherent over the rectus muscles and the fascial edge had to be carefully dissected off the underlying tissue with a scalpel. Once an edge of the fascia was surgically liberated, the superior aspect of the fascial incision was grasped with the Gianfranco clamps, elevated, and the underlying rectus muscles were dissected off sharply with the scalpel, controlling incidental bleeding with cautery. Attention was then turned to the inferior aspect of the incision which in a similar fashion was grasped, tented up with Gianfranco clamps, and the underlying rectus muscles dissected off sharply with scalpel with incidental bleeding con trolled with cautery. Again, there was thickened, adherent scar tissue obscuring the surgical planes that required careful dissection. The midline was was gently incised with a scalpel and hemostats were used to further develop the midline space. Once the midline was clearly identifiable and accessible, the rectus muscles were then in the midline. The peritoneum was identified, tented up, and entered bluntly. The peritoneal incision was extended superiorly and inferiorly with good visualization of the bladder. The bladder that blade was then inserted. A bladder flap was not created. The lower uterine segment of the uterus was identified, and incised in a transverse fashion with a scalpel. The uterus was entered bluntly. The uterine incision was extended in a craniocaudal fashion by manual stretch. The bladder blade was removed. The infant was floating and was difficult to deliver through thickened scar tissue. A Kiwi rigid cup vacuum was applied ot the head and the head was brought to the incision. Scar tissue was too thick for easy delivery. Bandage hannah were used to the the rectus muscles in a transverse fashion. Infant was delivered at 2 pop-offs with the vaccuum from a vertex position. Baby was wrapped in a warm sterile towel. Delayed cord clamping of about 20 seconds was performed. The cord was clamped x2 and cut. The infant was handed off to the waiting pediatricians. Uterine incision was noted to be 8:49 and delivery of the infant was at 8:54. The placenta was removed with manual expression. The uterus was NOT exteriorized. Ring forceps were applied to the upper and lower aspects of the incision and Allis clampes were applied to the corners. Ther uterus was cleared of all clots clots and debris via manual swipe using Ray-Ana Rosa x2. The uterine incision was then repaired in a running locked fashion using 0 Vicryl suture. The edge of the bladder was dissected away form the incision between the two suture closures to ensure that bladder adhesions were not included in the incision. The incision was reinforced with a running imbricating layer again using 0-Vicryl suture. Excellent hemostasis was obtained. The gutters were cleared of all clots and debris. The pelvis was irrigated with warm normal saline. The uterine defect was well visualized in normal anatomic position it was noted again to be hemostatic. The bladder was then backfilled with approximately 300 cc of NS with methylene blue. No spillage was noted in the pelvis and the bladder integrity was confirmed. Bladder was then drained. The peritoneum was then reapproximated with 2-0 Vicryl in a running fashion. The transverse incision acrs the left aspect of the rectus was re-approximated with mattress sutures using 2-0 Chromic. The rectus muscles were then reapproximated using interrupted [id number] sutures using 2-0 Chromic. Good hemostasis was noted. The fascia was then closed using 0 Vicryl in a running fashion starting from the left lateral edge to the midline. A second suture was used to close the fascia in a running fashion starting from the right lateral edge and meeting in the midline, again using 0-Vicryl. The subcutaneous tissue was then irrigated and closed using 2-0 chromic in a running subcutaneous suture in 2 layers. Skin was closed in a running subcuticular suture using 4-0 Monocryl. A total 10 cc of 1% lidocaine with epinephrine was injected into the incision line. Steri- Strips were applied to reinforce the incision and Prevena wound vac was applied. Procedure was well-tolerated and without complication. Sponge lap and needle counts were correct x2. Patient was taken to recovery room in stable condition. HOOD Ferguson assisted with retraction, suturing, delivery of the infant. 22 MODIFIER: This procedure was more difficult than the average given the immense amount of scar tissue and adhesions due to two prior c-sections, prior ectopic , and abdominoplasty and required more operative time for safe completion.
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
--- NOTE | 2020-05-16 12:38 | ANESTHESIA POST OP EVALUATION ---
Anesthesia Post Eval - Post Anesthesia Eval CV Function Including HR & BP: positive: Stable Pain Control: positive: Satisfactory Nausea & Vomiting: positive: Negative Mental Status: positive: Baseline Respiratory Status: Airway Patent Hydration Status: Satisfactory (Awake, alert, bonding with . Moving lower extremities. Taking PO ice chips) Anesthesia Complications: positive: None
[2020-05-16] MEDS: ACETAMINOPHEN 500 MG TABLET PO SCH ×2 (13:19→17:42)
[2020-05-16] MEDS: LACTATED RINGERS 1,000 ML IV SCH ×2 (13:19→20:32)
[2020-05-16] MEDS: KETOROLAC 30 MG/ML VIAL IVP SCH ×3 (13:19→22:04)
[2020-05-16] MEDS: ONDANSETRON 4 MG/2 ML VIAL IVP PRN ×2 (13:45→22:45)
[2020-05-16] MEDS ORDERED: ONDANSETRON 4 MG/2 ML VIAL ONE (13:52)
[2020-05-16] MEDS: SIMETHICONE CHEW 80 MG TABLET PO SCH (15:49)
[2020-05-16] MEDS: SODIUM CHLORIDE FLUSH 0.9% 10 ML SYRINGE IVP SCH ×2 (16:04→22:05)
[2020-05-16] MEDS ORDERED: KETOROLAC 30 MG/ML VIAL ONE (16:07)
[2020-05-16 19:36] LABS: BASOPHILS % (AUTO) 0.4 %; EOSINOPHILS # (AUTO) 0.1 10^3/uL (0.0-0.7); EOSINOPHILS % (AUTO) 1.5 %; HGB - HEMOGLOBIN 11.9 g/dL (12.0-16.0); LYMPHOCYTES % (AUTO) 21.5 %; MEAN CORPUSCULAR HEMOGLOBIN 30.8 pg (27.0-31.0); MEAN CORPUSCULAR HGB CONC 33.7 g/dL (32.0-36.0); MEAN CORPUSCULAR VOLUME 91.5 fL (81.0-99.0); MEAN PLATELET VOLUME 9.9 fL (7.9-10.8); MONOCYTES # (AUTO) 0.6 10^3/uL (0.0-1.0); MONOCYTES % (AUTO) 6.8 %; NEUTROPHILS # (AUTO) 6.3 10^3/uL (1.5-6.6); NEUTROPHILS % (AUTO) 68.8 %; PLT - PLATELET COUNT 287 10^3/uL (130-450); RED BLOOD COUNT 3.86 10^6/uL (4.20-5.40); RED CELL DISTRIBUTION WIDTH 13.7 % (12.0-15.0); WHITE BLOOD COUNT 9.2 x10^3/uL (4.8-10.8)
[2020-05-16 21:03] LABS: ALBUMIN 2.5 g/dL (3.2-5.5); ALBUMIN/GLOBULIN RATIO 0.7 (1.0-2.2); BILIRUBIN,TOTAL 0.5 mg/dL (0.2-1.0); CALCIUM 8.6 mg/dL (8.5-10.3); CREATININE 0.6 mg/dL (0.4-1.0); TOTAL PROTEIN 5.9 g/dL (6.7-8.2)
[2020-05-16] MEDS: SODIUM CHLORIDE FLUSH 0.9% 10 ML SYRINGE IVP PRN (22:13)
[2020-05-16] MEDS: HYDROmorphone 0.5 MG/0.5 ML SYRINGE IVP PRN (23:04)
[2020-05-17] MEDS: ACETAMINOPHEN 500 MG TABLET PO SCH ×3 (01:44→19:56)
[2020-05-17] MEDS: ONDANSETRON 4 MG/2 ML VIAL IVP PRN ×4 (03:50→21:12)
[2020-05-17] MEDS: SODIUM CHLORIDE FLUSH 0.9% 10 ML SYRINGE IVP SCH (03:50)
[2020-05-17] MEDS: HYDROmorphone 0.5 MG/0.5 ML SYRINGE IVP PRN (04:08)
[2020-05-17] MEDS: KETOROLAC 30 MG/ML VIAL IVP SCH (04:40)
[2020-05-17] MEDS: SODIUM CHLORIDE FLUSH 0.9% 10 ML SYRINGE IVP PRN (04:40)
[2020-05-17 05:39] LABS: BASOPHILS % (AUTO) 0.4 %; EOSINOPHILS # (AUTO) 0.1 10^3/uL (0.0-0.7); EOSINOPHILS % (AUTO) 0.6 %; HGB - HEMOGLOBIN 9.4 g/dL (12.0-16.0); LYMPHOCYTES # (AUTO) 1.2 10^3/uL (1.5-3.5); LYMPHOCYTES % (AUTO) 12.8 %; MEAN CORPUSCULAR HEMOGLOBIN 29.7 pg (27.0-31.0); MEAN PLATELET VOLUME 9.4 fL (7.9-10.8); MONOCYTES # (AUTO) 0.7 10^3/uL (0.0-1.0); MONOCYTES % (AUTO) 7.2 %; NEUTROPHILS # (AUTO) 7.6 10^3/uL (1.5-6.6); NEUTROPHILS % (AUTO) 78.5 %; PLT - PLATELET COUNT 233 10^3/uL (130-450); RED BLOOD COUNT 3.16 10^6/uL (4.20-5.40); RED CELL DISTRIBUTION WIDTH 13.5 % (12.0-15.0); WHITE BLOOD COUNT 9.6 x10^3/uL (4.8-10.8)
[2020-05-17] MEDS: SIMETHICONE CHEW 80 MG TABLET PO SCH (08:16)
[2020-05-17] MEDS: HYDROmorphone 2 MG TABLET PO PRN ×2 (09:54→14:54)
[2020-05-17] MEDS: IBUPROFEN 600 MG TABLET PO SCH ×2 (10:55→16:39)
--- NOTE | 2020-05-17 13:09 | PROVIDER PROGRESS NOTE ---
Subjective - Prog Note Date Prog Note Date: 05/17/20 Prog Note Time: 13:07 - Subjective Subjective: Patient is up and ambulating, tolerating po, and voiding. Pain is well managed with pain medications. Pain poorly managed on oxycodone, better on dilaudid. BF going well. Minimal lochia. Voiding. Objective - Vital Signs/Intake & Output Reviewed Vital Signs: Yes Vital Signs: Vital Signs x48h Temp Pulse Resp BP Pulse Ox 05/17/20 12:18 99.0 F 78 16 109/63 97 05/17/20 08:33 97.7 F 79 18 103/54 L 99 Intake & Output: Intake & Output 05/14/20 05/15/20 05/16/20 05/17/20 23:59 23:59 23:59 23:59 Intake Total 1200 900 Output Total 950 1220 Balance 250 -320 - Objective General Appearance: positive: No acute distress Respiratory: positive: Chest non-tender, No respiratory distress, Breath sounds nml Cardiovascular: positive: Regular rate & rhythm Abdomen: positive: Other (appropriately tender. FF below umbi. Prevena in place) Skin: positive: Color nml Extremities: positive: Non-tender, No pedal edema Neurologic/Psychiatric: positive: Oriented x3 - Lab Results Fish Bones: 05/17/20 05:30 05/16/20 20:38 Other Labs: Lab Results x24hrs 05/17/20 05/16/20 05/16/20 Range/Units 05:30 20:38 06:05 WBC 9.6 9.2 (4.8-10.8) x10^3/uL RBC 3.16 L 3.86 L (4.20-5.40) 10^6/uL Hgb 9.4 L 11.9 L (12.0-16.0) g/dL Hct 29.4 L 35.3 L (37.0-47.0) % MCV 93.0 91.5 (81.0-99.0) fL MCH 29.7 30.8 (27.0-31.0) pg MCHC 32.0 33.7 (32.0-36.0) g/dL RDW 13.5 13.7 (12.0-15.0) % Plt Count 233 287 (130-450) 10^3/uL MPV 9.4 9.9 (7.9-10.8) fL Neut # (Auto) 7.6 H 6.3 (1.5-6.6) 10^3/uL Lymph # (Auto) 1.2 L 2.0 (1.5-3.5) 10^3/uL [place] # (Auto) 0.7 0.6 (0.0-1.0) 10^3/uL Eos # (Auto) 0.1 0.1 (0.0-0.7) 10^3/uL Baso # (Auto) 0.0 0.0 (0.0-0.1) 10^3/uL Absolute Nucleated RBC 0.00 0.00 x10^3/uL Nucleated RBC % 0.0 0.0 /100WBC Sodium 135 (135-145) mmol/L Potassium 3.6 (3.5-5.0) mmol/L Chloride 102 (101-111) mmol/L Carbon Dioxide 23 (21-32) mmol/L Anion Gap 10.0 (6-13) BUN 14 (6-20) mg/dL Creatinine 0.6 (0.4-1.0) mg/dL Estimated GFR (MDRD) 114 (>89) Glucose 124 H (70-100) mg/dL Calcium 8.6 (8.5-10.3) mg/dL Total Bilirubin 0.5 (0.2-1.0) mg/dL AST 22 (10-42) IU/L ALT 12 (10-60) IU/L Alkaline Phosphatase 104 (42-121) IU/L Total Protein 5.9 L (6.7-8.2) g/dL Albumin 2.5 L (3.2-5.5) g/dL Globulin 3.4 (2.1-4.2) g/dL Albumin/Globulin Ratio 0.7 L (1.0-2.2) Assessment/Plan - Problem List (1) delivery delivered Impression: POD#1 s/p rLTCS -Routine post care -Working on optimization of pain mgt -Overall, doing well Anticiapte DC home in am.
[2020-05-17] MEDS ORDERED: HYDROmorphone 0.5 MG/0.5 ML SYRINGE IVP PRN (16:58)
[2020-05-17] MEDS: HYDROmorphone 1 MG/ML CARPUJECT IVP PRN ×2 (17:35→21:34)
[2020-05-18] MEDS: IBUPROFEN 600 MG TABLET PO SCH ×3 (00:55→12:59)
[2020-05-18] MEDS: HYDROmorphone 2 MG TABLET PO PRN ×4 (00:56→12:59)
[2020-05-18] MEDS: ACETAMINOPHEN 500 MG TABLET PO SCH ×2 (04:43→12:59)
[2020-05-18] MEDS: SIMETHICONE CHEW 80 MG TABLET PO SCH (07:27)
[2020-05-18 07:38] VITALS: BP 96/54
--- NOTE | 2020-05-18 11:33 | Discharge Plan ---
Discharge Plan Problem Reviewed?: Yes Disposition: Home, Self Care Condition: Good Prescriptions: HYDROmorphone [Dilaudid] 2 mg PO Q4H PRN #24 tablet PRN Reason: Severe Pain Docusate Sodium 100 - 200 mg PO BID PRN #60 capsule PRN Reason: Constipation Ibuprofen [Motrin] 600 mg PO Q6H PRN #90 tab PRN Reason: Pain Acetaminophen [Tylenol Extra Strength] 500 - 1,000 mg PO Q8H PRN #90 tablet PRN Reason: Pain Diet: Regular Activity Restrictions: Additional Comments (Nothing in the vagina for 6 weeks: No intercourse, tampons, douching Call for: -Fever greater than 100.5 - Pain that does not improve with pain medication -Heavy bleeding in which you are soaking a pad an hour for 2 hours in a row) Shower Restrictions: Yes (OK to shower. No baths of hot tubs) Driving Restrictions: Yes (No driving on narcotics) Additional Instructions or Follow Up instructions: When showering, let water run over the incision. Pat dry with a clean towel or use a watch hairspring assembler. Surgical tape will start to fall off after 1 week. If it starts to fall off it is okay to remove it. Otherwise, provider will remove at 1 week visit. If wound VAC becomes too uncomfortable to tolerate, it is okay to remove it. Otherwise will remove in clinic at 1 week . Please call if your wound becomes hot, hard, red, opens up, or starts to drain foul-smelling discharge. No lifting more than 10 pounds for 4 weeks. OK to lift the baby in that timeframe, but no older children, laundry baskets, baby carriers, grocery bags, etc. No Smoking: If you smoke, Please STOP! Call for help. Follow-up with: Lesly Spencer MD [Provider Admit Priv/Credential] -
--- NOTE | 2020-05-18 11:34 | DISCHARGE SUMMARY ---
"Discharge Summary Admit Date: 03/16/20 Discharge Date: 05/18/20 Discharging Provider: Tj Condition at Discharge: Good Discharge Facility Name: [facility] - DIAGNOSES Admission Diagnoses: IUP at 39+0 wga Hx of two prior c-sections Hx of ruptured ectopic Hx of abdominoplasty History of wound complication Discharge Diagnoses with Status of Each Condition: Same and delivery of term gestation - HPI History of Present Illness: Patient is a 34 yo at 39+0 wga here for scheduled repeat Hx of prior , scheduled for repeat. Second complicated by wound seroma requiring daily packing for 8 weeks. Also has hx of rupture ecoptic with salpingectomy and blood transfusion as well as abdominoplasty.. - CONSULTS | PROCEDURES Procedures: Repeat low transverse - HOSPITAL COURSE Hospital Course: Patient is a 34-year-old at 39+0 WGA admitted for scheduled repeat low transverse . Her past medical history is complicated by 2 prior C- sections, history of ruptured ectopic requiring blood transfusion, wound complication, and abdominoplasty. She was admitted on May 16, 2020 for scheduled procedure. The procedure itself was more challenging than average given the extensive amount of scar tissue but overall was well-tolerated and without complication. Prevena superficial wound vac was placed for wound management. Of note, the bladder was adherent to the posterior rectus sheath and was adherent to about 1/3 of the distance form the pubis to the umbilicus and care should be taken in future surgical intervention given the higher risk of bladder injury. Her postoperative course was uncomplicated. By POD#2, she was meeting goals for discharge and was discharged to home. O positive. Rubella immune Wound vac in place over closed incision. - ALLERGIES Allergies/Adverse Reactions: Allergies Allergy/AdvReac Type Severity Reaction Status Date / Time No Known Drug Allergies Allergy Verified 09/27/19 13:52 - MEDICATIONS Home Medications: Ambulatory Orders Medication Instructions Recorded Confirmed Naproxen 375 mg PO BID #15 tablet 09/27/19 Ondansetron Odt [Zofran] 4 mg TL Q6H PRN #10 tablet 09/27/19 Pnv No.95/Ferrous Fum/Folic AC 1 each PO DAILY #30 tablet 09/27/19 [ Vitamin Tablet] Pyridoxine HCl (Vitamin B6) 25 mg PO BID #60 tablet 09/27/19 [Vitamin B-6] Acetaminophen [Tylenol Extra 500 - 1,000 mg PO Q8H PRN #90 05/18/20 Strength] tablet Docusate Sodium 100 - 200 mg PO BID PRN #60 capsule 05/18/20 HYDROmorphone [Dilaudid] 2 mg PO Q4H PRN #24 tablet 05/18/20 Ibuprofen [Motrin] 600 mg PO Q6H PRN #90 tab 05/18/20 - PHYSICAL EXAM AT DISCHARGE General Appearance: positive: No acute distress Respiratory: positive: No respiratory distress, Breath sounds nml Cardiovascular: positive: Regular rate & rhythm Abdomen: positive: Other (appropriately tender. Wounnd vac in place. Edges of teguderm causing pressure related irritation and edges were released in upper extremities) Skin: positive: Color nml, Other (Irritation around end of teguderm on top of lower extremities. No erythema under adhesive. ) Extremities: positive: Non-tender, Other (mild BLE) Neurologic/Psychiatric: positive: Oriented x3 - LABS Result Diagrams: 05/17/20 05:30 05/16/20 20:38 - FOLLOW UP Follow Up: [address] Spencer - TIME SPENT Time Spent in Discharge (Minutes): 30"
== END 2020-05-18 13:00 | disposition home or self-care (01) | DRG 788 ==
LOC: FBP 05:36
PROVIDERS: ADMIT Obstetrics & Gynecology; ATTEND Obstetrics & Gynecology
PROC: 10D00Z1 Extraction of Products of Conception, Low, Open Approach (ICD-10-PCS; principal; 2020-05-16 07:30)
DX: O34.211 Maternal care for low transverse scar from previous cesarean delivery (principal); N85.8 Other specified noninflammatory disorders of uterus; Z3A.39 39 weeks gestation of pregnancy; Z37.0 Single live birth
CPT/HCPCS: 36415; 80053; 85025; A9270; J0131; J1170; J7120; 83880; 86850; 86900; 86901; 86920

== ENCOUNTER 2020-06-01 18:15 | Emergency (ER) | payer OTHER ==
--- NOTE | 2020-06-01 19:01 | ED Physician Documentation ---
PD HPI WOUND RECHECK - Stated complaint Stated Complaint: POST OP COMPLICATIONS - Chief complaint Chief Complaint: Abd Pain - Histroy obtained from History obtained from: Patient - History of Present Illness Location: Abdomen (lower abd c-sec wound line with some drainage the past couple of days. No redness. No fever.) Timing - onset: How many days ago (1-2) Associated symptoms: Drainage. No: Fever, Redness Similar symptoms before: Has not had sx before Recently seen: Clinic (had 05/16 and had good post op visit last week. 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 Psych: Anxiety Musculoskeletal: None Derm: None - Past Surgical History Past Surgical History: Yes /CORDUROY CUTTER OPERATOR: section, Other (Breast Augmentation, Ectopic ) - Present Medications Home Medications: Ambulatory Orders Medication Instructions Recorded Confirmed Naproxen 375 mg PO BID #15 tablet 09/27/19 Ondansetron Odt [Zofran] 4 mg TL Q6H PRN #10 tablet 09/27/19 Pnv No.95/Ferrous Fum/Folic AC 1 each PO DAILY #30 tablet 09/27/19 [ Vitamin Tablet] Pyridoxine HCl (Vitamin B6) 25 mg PO BID #60 tablet 09/27/19 [Vitamin B-6] Acetaminophen [Tylenol Extra 500 - 1,000 mg PO Q8H PRN #90 05/18/20 Strength] tablet Docusate Sodium 100 - 200 mg PO BID PRN #60 capsule 05/18/20 HYDROmorphone [Dilaudid] 2 mg PO Q4H PRN #24 tablet 05/18/20 Ibuprofen [Motrin] 600 mg PO Q6H PRN #90 tab 05/18/20 HYDROmorphone [Dilaudid] 2 mg PO Q4H PRN #24 tablet 05/23/20 Sulfamethox/Trimeth 800/160 1 each PO BID #14 tablet 06/01/20 [Bactrim Ds 800/160] - Allergies Allergies/Adverse Reactions: Allergies Allergy/AdvReac Type Severity Reaction Status Date / Time No Known Drug Allergies Allergy Verified 09/27/19 13:52 - Social History Does the pt smoke?: No Smoking Status: Never smoker Does the pt drink ETOH?: No Does the pt have substance abuse?: No - Immunizations Immunizations are current?: Yes - POLST Patient has POLST: No PD ED PE NORMAL - Vitals Vital signs reviewed: Yes - General General: Alert and oriented X 3, No acute distress, Well developed/nourished - Neck Neck: Supple, no meningeal sign, No adenopathy - Cardiac Cardiac: RRR, No murmur - Respiratory Respiratory: Clear bilaterally - Abdomen Abdomen: Normal bowel sounds, Soft, Non distended, No organomegaly, Other (lower abd c-sec wound noted with mainly intact wound line. There are small spots of droplet drainage with palpation on left side of wound. Bedside U/S did not show notable fluid collections. Induration of healing tissue noted without fluctuance under suture line. ) - Female Female : Deferred - Derm Derm: Normal color, Other (no redness nor swelling along the suture line. ) Results - Vitals Vitals: Vital Signs - 24 hr 06/01/20 06/01/20 06/01/20 18:46 19:10 19:25 Temperature 36.9 C 36.9 C 36.9 C Heart Rate 66 66 65 Respiratory 18 16 16 Rate Blood Pressure 136/87 H 136/87 H 137/88 H O2 Saturation 99 99 100 Oxygen O2 Source Room air - Labs Labs: Microbiology 06/01/20 19:16 Wound Culture - Preliminary Abdomen PD MEDICAL DECISION MAKING - ED course Complexity details: reviewed old records, considered differential (concern for wound infection. Bedside U/S did not show any notable fluid collection just under the skin, so no I&D indicated. There is oozing from spots already. ), d/w patient, d/w [employer] iam consultant (s/w Dr. Marin, loss prevention operations manager, and agreed on plan of treat ment. ) Departure - Departure Disposition: 01 Home, Self Care Clinical Impression: Draining postoperative wound Qualifiers: Encounter type: initial encounter Qualified Code(s): T81.89XA - Other complications of procedures, not elsewhere classified, initial encounter Condition: Stable Record reviewed to determine appropriate education?: Yes Follow-Up: ROCÍO PRADO ARNP [Primary Care Provider] - Prescriptions: Sulfamethox/Trimeth 800/160 [Bactrim Ds 800/160] 1 each PO BID #14 tablet Comments: Warm moist compresses every few hours. Bactrim antibiotic twice daily for concern of infection. Follow up tomorrow as planned. Discharge Date/Time: 06/01/20 19:30
[2020-06-01] MEDS ORDERED: ACETAMINOPHEN 325 MG TABLET PO STA (19:21)
[2020-06-01] MEDS ORDERED: SULFAMETH/TRIMETH DS 800/160 MG TABLET PO STA (19:21)
[2020-06-01 19:26] VITALS: BP 137/88
== END 2020-06-01 19:30 | disposition home or self-care (01) ==
LOC: ED 18:15
DX: O90.89 Other complications of the puerperium, not elsewhere classified (principal); T81.89XA Other complications of procedures, not elsewhere classified, initial encounter; Y83.8 Other surgical procedures as the cause of abnormal reaction of the patient, or of later complication, without mention of misadventure at the time of the procedure
CPT/HCPCS: 87070; 87077; 87181; 87205; 99283; 99284; A9270

== ENCOUNTER 2020-06-30 08:00 | Outpatient (CLI) | payer OTHER | END 2020-06-30 23:59 | disposition home or self-care (01) | LOC: LAB.R 08:00 | PROVIDERS: ATTEND Obstetrics & Gynecology | DX: R19.7 Diarrhea, unspecified (principal); Z79.2 Long term (current) use of antibiotics | CPT/HCPCS: 87493 ==

== ENCOUNTER 2022-05-23 08:55 | Emergency (ER) | payer OTHER ==
--- NOTE | 2022-05-23 09:09 | ED Physician Documentation ---
PD HPI ABD PAIN - Stated complaint Stated Complaint: ABD PX - Chief complaint Chief Complaint: Abd Pain - History obtained from History obtained from: Patient - History of Present Illness Timing - onset: How many days ago (9) Timing - duration: Days (9) Timing - details: Gradual onset, Still present, Waxing and waning Quality: Cramping, Aching, Pain Location: Periumbilical, LLQ Radiation: No: Lower back, Left flank Improved by: No: Eating, BM (has had diarrhea multiple daily for the 9 dyas, worsening.) Worsened by: Eating Associated symptoms: Nausea, Diarrhea. No: Fever, Constipation, Melena, Hem atochezia, Dysuria Similar symptoms before: Diagnosis (similar to C.Diff 2 years ago.) Review of Systems Constitutional: reports: Chills, Myalgias. denies: Fever Nose: denies: Rhinorrhea / runny nose, Congestion Throat: denies: Sore throat Respiratory: denies: Cough GI: reports: Abdominal Pain, Nausea, Diarrhea (watery and malodorous). 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 Psych: Anxiety Musculoskeletal: None Derm: None - Past Surgical History Past Surgical History: Yes /SENIOR SYSTEMS PROGRAMMER: section, Other (Breast Augmentation, Ectopic ) - Present Medications Home Medications: Ambulatory Orders Medication Instructions Recorded Confirmed Dicyclomine [Bentyl] 10 mg PO TID PRN #20 cap 05/23/22 Diphenoxylate/Atropine [Lomotil] 1 each PO QID PRN #12 tablet 05/23/22 L.acid/L.casei/B.bif/B.marquise/Fos 1 each PO TID 10 Days #30 cap 05/23/22 [Probiotic Blend Capsule] Ondansetron Odt [Zofran] 4 mg TL Q6H PRN #10 tablet 05/23/22 - Allergies Allergies/Adverse Reactions: Allergies Allergy/AdvReac Type Severity Reaction Status Date / Time No Known Drug Allergies Allergy Verified 05/23/22 09:06 - Social History Does the pt smoke?: No Smoking Status: Never smoker Does the pt drink ETOH?: No Does the pt have substance abuse?: No - Immunizations Immunizations are current?: Yes - POLST Patient has POLST: No PD ED PE NORMAL - Vitals Vital signs reviewed: Yes - General General: Alert and oriented X 3, No acute distress, Well developed/nourished - Neck Neck: Supple, no meningeal sign, No adenopathy - Cardiac Cardiac: RRR, No murmur - Respiratory Respiratory: No respiratory distress, Clear bilaterally - Abdomen Abdomen: Soft, Non distended, No organomegaly, Other (tenderness with some guarding periumbilical and left lower without percussion nor rebound tenderness. ) - Back Back: No CVA TTP - Derm Derm: Normal color, Warm and dry - Extremities Extremities: Normal ROM s pain, No edema, No calf tenderness / cord - Neuro Neuro: Alert and oriented X 3, No motor deficit, Normal speech Results - Vitals Vitals: Vital Signs - 24 hr 05/23/22 05/23/22 05/23/22 09:04 11:39 13:19 Temperature 36.9 C 36.8 C 36.8 C Heart Rate 85 66 64 Respiratory 16 14 16 Rate Blood Pressure 137/92 H 117/69 110/70 O2 Saturation 97 100 100 Oxygen O2 Source Room air - Labs Labs: Laboratory Tests 05/23/22 05/23/22 05/23/22 09:40 09:40 09:40 WBC 5.3 RBC 4.90 Hgb 13.5 Hct 42.5 MCV 86.7 MCH 27.6 MCHC 31.8 L RDW 13.0 Plt Count 313 MPV 9.3 Neut # (Auto) 3.3 Lymph # (Auto) 1.4 L [place] # (Auto) 0.2 Eos # (Auto) 0.3 Baso # (Auto) 0.0 Absolute Nucleated RBC 0.00 Nucleated RBC % 0.0 ESR 12 Sodium 139 Potassium 3.9 Chloride 102 Carbon Dioxide 28 Anion Gap 9.0 BUN 9 Creatinine 0.7 Estimated GFR (MDRD) 94 Glucose 99 Calcium 9.8 Magnesium 2.2 Total Bilirubin 0.8 AST 28 ALT 26 Alkaline Phosphatase 71 Total Protein 8.9 H Albumin 4.5 Globulin 4.3 H Albumin/Globulin Ratio 1.0 Lipase 41 - Rads (name of study) abd/pelvic CT Radiology: Prelim report reviewed (no acute radiologic findings. No diverticulitis. ), See rad report PD MEDICAL DECISION MAKING - ED course Complexity details: considered differential (c-diff couple years ago with similar symptoms now. Would want to verify infection prior to Rx antibiotics for it. ), d/w patient Departure - Departure Disposition: 01 Home, Self Care Clinical Impression: Abdominal cramping, Diarrhea Condition: Stable Record reviewed to determine appropriate education?: Yes Instructions: ED Diet Vomiting Diarrhea Follow-Up: TENNILLE Morris [Provider Group] Prescriptions: Dicyclomine [Bentyl] 10 mg PO TID PRN #20 cap PRN Reason: Abdominal Pain Diphenoxylate/Atropine [Lomotil] 1 each PO QID PRN #12 tablet PRN Reason: Diarrhea L.acid/L.casei/B.bif/B.marquise/Fos [Probiotic Blend Capsule] 1 each PO TID 10 Days #30 cap Ondansetron Odt [Zofran] 4 mg TL Q6H PRN #10 tablet PRN Reason: Nausea / Vomiting Comments: Bring the stool collection materials home with you and obtain a diarrhea sample to bring back to the lab or to your primary care office for testing of C. difficile and stool culture. We want to see if there is a particular bacterial infection that needs specific treating such as the C. difficile. I would not start on treatment until proven though so we have the right medication. In the meantime stay well-hydrated. You can use ondansetron for nausea. Dicyclomine 3 times daily if needed for cramps. I would suggest starting some probiotic supplements 3 times daily for the next 7 to 10 days. This can help infections including C. difficile. Do not use any antidiarrhea medication until you have a stool sample obtained at home. You can then use the antidiarrheal if needed. The stool culture and C. difficile test results will usually take about a day after sent to the lab. You do want a follow-up with your primary care regarding the results of those. I sent your prescriptions to your preferred pharmacy. The CT scan did not show any obvious acute localized process. No obvious signs of diverticulitis or abscess or local colitis. However that does not preclude having a general infection such as C. difficile, Salmonella, Campylobacter etc. Discharge Date/Time: 05/23/22 13:21
[2022-05-23] MEDS ORDERED: KETOROLAC 15 MG/ML VIAL IVP STA (09:25)
[2022-05-23] MEDS ORDERED: SODIUM CHLORIDE 0.9% 1,000 ML IV STA (09:25)
[2022-05-23 09:49] LABS: BASOPHILS % (AUTO) 0.8 %; EOSINOPHILS # (AUTO) 0.3 10^3/uL (0.0-0.7); EOSINOPHILS % (AUTO) 5.5 %; HCT - HEMATOCRIT 42.5 % (37.0-47.0); HGB - HEMOGLOBIN 13.5 g/dL (12.0-16.0); LYMPHOCYTES # (AUTO) 1.4 10^3/uL (1.5-3.5); LYMPHOCYTES % (AUTO) 26.8 %; MEAN CORPUSCULAR HEMOGLOBIN 27.6 pg (27.0-31.0); MEAN CORPUSCULAR HGB CONC 31.8 g/dL (32.0-36.0); MEAN CORPUSCULAR VOLUME 86.7 fL (81.0-99.0); MEAN PLATELET VOLUME 9.3 fL (7.9-10.8); MONOCYTES # (AUTO) 0.2 10^3/uL (0.0-1.0); MONOCYTES % (AUTO) 4.6 %; NEUTROPHILS # (AUTO) 3.3 10^3/uL (1.5-6.6); NEUTROPHILS % (AUTO) 62.1 %; PLT - PLATELET COUNT 313 10^3/uL (130-450); WHITE BLOOD COUNT 5.3 x10^3/uL (4.8-10.8)
[2022-05-23 10:06] LABS: ALBUMIN 4.5 g/dL (3.2-5.5); BILIRUBIN,TOTAL 0.8 mg/dL (0.2-1.0); CALCIUM 9.8 mg/dL (8.5-10.3); CREATININE 0.7 mg/dL (0.4-1.0); MAGNESIUM 2.2 mg/dL (1.7-2.8); POTASSIUM 3.9 mmol/L (3.5-5.0); TOTAL PROTEIN 8.9 g/dL (6.7-8.2)
[2022-05-23] MEDS ORDERED: iohexoL-300 100 ML VIAL ONE (10:49)
--- NOTE | 2022-05-23 11:45 | CT Report ---
PROCEDURE: CT abdomen pelvis with contrast INDICATIONS: left lower/mid abd pain and diarrhea 9 days TECHNIQUE: After the administration of contrast, 5 mm thick sections acquired from the diaphragms to the sym physis. 5 mm thick coronal and sagittal reformats were acquired. For radiation dose reduction, the following was used: automated exposure control, adjustment of mA and/or kV according to patient size . COMPARISON: 01/07/2016 FINDINGS: Image quality: Excellent. ABDOMEN: Lung bases: Lung bases are clear. Heart size is normal. Solid organs: Liver and spleen are normal in size and enhancement. Gallbladder unremarkable. Bilia ry system is non dilated. Pancreas enhances normally. No adrenal nodules. Kidneys demonstrate norm al size and enhancement, without hydronephrosis. Peritoneum and bowel: Bowel loops demonstrate normal wall thickness and caliber. No free fluid or a ir. Normal appendix identified Nodes and vessels: No retroperitoneal or mesenteric adenopathy by size criteria. Aorta and inferior vena cava are normal in size. Miscellaneous: No ventral hernias. PELVIS: Genitourinary: Bladder wall thickness is normal. Miscellaneous: No inguinal hernias or adenopathy. Bones: No suspicious bony lesions. No vertebral body compression fractures. Calcification in the v entral subcutaneous fat probably reflects injection granuloma or scarring, similar to the prior IMPRESSION: No acute CT findings in the abdomen and pelvis. No evidence of diverticulitis or colitis Reviewed by: Hai Davalos MD on 05/23/2022 10:44 AM [facility] Approved by: Hai Davalos MD on 05/23/2022 10:44 AM [facility] Station ID: [id number]
[2022-05-23 13:20] VITALS: BP 110/70
[2022-05-23] MEDS ORDERED: iohexoL-300 100 ML VIAL IVP ONE (14:36)
== END 2022-05-23 13:21 | disposition home or self-care (01) ==
LOC: ED 08:55
DX: R10.33 Periumbilical pain (principal); R10.32 Left lower quadrant pain; R19.7 Diarrhea, unspecified; R11.0 Nausea
CPT/HCPCS: 36415; 74177; 80053; 83690; 83735; 85025; 85651; 96374; 99282; 99284; Q9967; 83630

== ENCOUNTER 2022-06-04 08:00 | Outpatient (CLI) | payer OTHER | END 2022-06-04 23:59 | disposition home or self-care (01) | LOC: LAB.R 08:00 | PROVIDERS: ATTEND Emergency Medicine | DX: A09 Infectious gastroenteritis and colitis, unspecified (principal) | CPT/HCPCS: 87045; 87046; 87427; 87493 ==

== ENCOUNTER 2022-06-08 16:56 | Outpatient (CLI) | payer OTHER | END 2022-06-08 16:57 | disposition home or self-care (01) | LOC: LAB 16:56 | PROVIDERS: ATTEND Specialist | DX: R10.10 Upper abdominal pain, unspecified (principal); R19.7 Diarrhea, unspecified | CPT/HCPCS: 36415; 86140 ==

== ENCOUNTER 2022-06-09 11:49 | Outpatient (CLI) | payer OTHER | END 2022-06-09 11:50 | disposition home or self-care (01) | LOC: LAB 11:49 | PROVIDERS: ATTEND Specialist | DX: R10.10 Upper abdominal pain, unspecified (principal); R19.7 Diarrhea, unspecified | CPT/HCPCS: 83993 ==